=== PATIENT | male | born 2000 | race Caucasian/White ===

== ENCOUNTER → 2018-09-25 | Outpatient (CLI) | payer OTHER ==
[~2018-09-25] MED LIST: CONRAY-43 43% 50ML VIAL (Q9960) As Ordered ONE; PROHANCE 279.3MG/ML 5ML VIAL (A9576) As Ordered ONE
--- NOTE | 2018-09-25 08:57 | REP ---
MR arthrogram right hip: History: Right hip pain . Technique: Precontrast imaging includes coronal T1 and T2-weighted scans of both hips. Postcontrast small field of view high resolution axial, coronal and sagittal images are acquired in T1 and T2-weighted scans with fat saturation. MR arthrographic findings: Comparison studies: No comparison imaging. Pre injection imaging shows that cortical and medullary bone signal intensity is normal in the proximal femurs bilaterally. There is no evidence to suggest avascular necrosis. The visualized bony pelvic ring shows intact bone signal intensity as well. No pelvic mass, adenopathy or abdominal wall defect is seen. Urinary bladder, prostate and seminal vesicles are unremarkable. There is no evidence of significant hip joint effusion on preinjection imaging. T2-weighted scans do show mild edema pattern just lateral to the greater trochanters on both sides which may reflect mild tendonitis or bursitis. Post injection imaging shows good filling and enhancement of the right hip articulation. No loose body is seen. Ligamentum teres is intact. No articular cartilage abnormality is seen. No labral cartilage tear is appreciated. Impression: Mild edema on T2-weighted scans adjacent to the greater trochanters bilaterally. Question tendonitis or bursitis change. Otherwise normal MR arthrography right hip. Electronically Signed by Maik Ramirez MD 09/25/2018 10:16 A
--- NOTE | 2018-09-25 19:03 | REP ---
RIGHT HIP ARTHROGRAM The procedure was performed under the direction supervision of Dr. Ramirez. The benefits and risks including but not limited to pain, infection, bleeding and anaphylaxis were explained to the patient and informed consent was obtained. The right femoral neck was localized using fluoroscopic guidance. Skin was prepped and draped in a sterile fashion. 1% lidocaine was used as a local anesthetic. Using fluoroscopic guidance a 22 gauge spinal needle was inserted and advanced to the femoral neck. 0.5 ml of Conray 43 was injected to verify placement. 11 ml of a solution containing 20 ml of sterile saline and 0.15 ml of ProHance was injected into the joint. The needle was removed and the patient was taken to MRI for postprocedural imaging. The patient tolerated the procedure well and there were no immediate complications. Less than 6 seconds of fluoro time was utilized for this procedure. Reviewed by VALERIE Sifuentes 09/25/2018 12:31 P Electronically Signed by Maik Ramirez MD 09/25/2018 06:55 P
== END ==
LOC: M RADPRO 06:19
PROVIDERS: ATTEND Orthopaedic Surgery
DX: R60.0 Localized edema (principal)
CPT/HCPCS: 27093; 73723; 77002; A9576; Q9960

== ENCOUNTER → 2018-09-29 | Outpatient (CLI) | payer OTHER ==
[~2018-09-29] MED LIST changes: +LIDOCAINE 1% MDV 20ML VIAL As Ordered ONE; -PROHANCE 279.3MG/ML 5ML VIAL (A9576) As Ordered ONE; +TRIAMCINOLONE ACETONIDE SUSP 40 MG/ML VIAL (J3301) As Ordered ONE
--- NOTE | 2018-09-29 18:07 | REP ---
Right hip injection The procedure was performed under the direct supervision of Dr. Ramirez. The benefits and risks including but not limited to pain infection and bleeding and anaphylaxis were explained to the patient and informed consent was obtained. The right femoral neck was localized using fluoroscopic guidance. The skin was prepped and draped in a sterile fashion. 1% lidocaine was used as a local anesthetic. Using fluoroscopic guidance a 22-gauge spinal needle was inserted and advanced to the femoral neck. 0.5 ml of Conray 43 was injected to verify placement. 10 ml of a solution containing 9 ml of 1% Xylocaine and 1 ml of Kenalog 40 mg was injected. The needle was then removed. The patient tolerated the procedure well and there were no immediate complications. Less than six seconds of fluoro time was utilized for this procedure. Reviewed by VALERIE Sifuentes 09/29/2018 05:16 P Electronically Signed by Maik Ramirez MD 09/29/2018 05:58 P
== END ==
LOC: M RADPRO 08:39 → EDUNIT# 09:00
PROVIDERS: ATTEND Orthopaedic Surgery
DX: M25.551 Pain in right hip (principal)
CPT/HCPCS: 20611; 77002; J3301; Q9960

== ENCOUNTER 2021-06-28 17:06 | Emergency (ER) | payer OTHER ==
[~2021-06-28] VITALS: Ht 172.7 cm; Wt 88.8 kg
[2021-06-28] MEDS ORDERED: ZOFR4TAB16 PO (17:51)
[2021-06-28 18:47] LABS: BASO % 0.3 % (0.0-1.0); EOS % 0.2 % (0.0-3.0); HEMATOCRIT 45.9 % (42.0-52.0); HEMOGLOBIN 15.7 g/dl (13.5-17.5); LYMPH # 1.8 10^3/uL (1.5-5.0); LYMPH % 28.2 % (24.0-44.0); MEAN CORPUSCULAR HEMOGLOBIN 30.5 pg (27.0-33.0); MEAN CORPUSCULAR HGB CONC 34.2 g/dl (32.0-36.5); MEAN CORPUSCULAR VOLUME 89.3 fl (80.0-96.0); MONO # 0.5 10^3/uL (0.0-0.8); NEUTROPHILS # 4.1 10^3/uL (1.5-8.5); PLATELET COUNT, AUTOMATED 198 10^3/uL (150-450); RED BLOOD COUNT 5.14 10^6/uL (4.30-6.10); WHITE BLOOD COUNT 6.4 10^3/uL (4.0-10.0)
[2021-06-28 19:09] LABS: ALBUMIN 4.3 GM/DL (3.2-5.2); ALT/SGPT 23 U/L (12-78); BILIRUBIN,DIRECT 0.3 MG/DL (0.0-0.2); BILIRUBIN,TOTAL 1.2 MG/DL (0.2-1.0); BLOOD UREA NITROGEN 12 MG/DL (7-18); CALCIUM LEVEL 9.5 MG/DL (8.5-10.1); CARBON DIOXIDE LEVEL 30 MEQ/L (21-32); CHLORIDE LEVEL 108 MEQ/L (98-107); CREATININE FOR GFR 1.18 MG/DL (0.70-1.30); GLOMERULAR FILTRATION RATE > 60.0 (>60); GLUCOSE, FASTING 86 MG/DL (70-100); LIPASE 82 U/L (73-393); POTASSIUM SERUM 4.3 MEQ/L (3.5-5.1); SODIUM LEVEL 142 MEQ/L (136-145); TOTAL PROTEIN 7.6 GM/DL (6.4-8.2)
[2021-06-28 19:30] VITALS: BP 129/67
[2021-06-28] MEDS ORDERED: ISOVUE-370 76% 100ML VIAL As Ordered ONE (21:39)
--- NOTE | 2021-06-28 21:51 | REPVR ---
PROCEDURE INFORMATION: Exam: US Abdomen, Limited; Right Upper Quadrant Exam date and time: 06/28/2021 9:10 PM Age: 20 years old Clinical indication: Abdominal pain; Acute; Additional info: Ruq pain TECHNIQUE: Imaging protocol: US abdomen. Real time ultrasound with image documentation. Limited exam focused on the right upper quadrant. COMPARISON: XA HIP ARTHROGRAM WITH MR-CT 09/25/2018 7:02 AM FINDINGS: Liver: Unremarkable. Gallbladder: No gallstones. No gallbladder wall thickening or pericholecystic fluid. Negative sonographic Gifford's sign, as per the performing flight line mechanic. Common bile duct: No stones. No ductal dilatation. Pancreas: Unremarkable as visualized. Right kidney: No mass. No definite stones. No hydronephrosis. IMPRESSION: No acute sonographic findings. Electronically signed by: Devin Sierra On 06/28/2021 21:50:49 PM
--- NOTE | 2021-06-28 22:08 | REPVR ---
PROCEDURE INFORMATION: Exam: CT Abdomen And Pelvis With Contrast Exam date and time: 06/28/2021 9:54 PM Age: 20 years old Clinical indication: Abdominal pain; Generalized TECHNIQUE: Imaging protocol: Computed tomography of the abdomen and pelvis with contrast. Axial, coronal and sagittal reformatted images were created and reviewed. Radiation optimization: All CT scans at this facility use at least one of these dose optimization techniques: automated exposure control; mA and/or kV adjustment per patient size (includes targeted exams where dose is matched to clinical indication); or iterative reconstruction. Contrast material: ISOVUE 370; Contrast volume: 100 ml; Contrast route: INTRAVENOUS (IV); COMPARISON: GALLBLADDER US 06/28/2021 8:59 PM FINDINGS: Liver: Unremarkable. Gallbladder and bile ducts: No radiodense gallstones. No biliary ductal dilatation. Pancreas: Unremarkable. Spleen: Unremarkable. Adrenal glands: Normal. No mass. Kidneys and ureters: No mass. No radiodense calculi. No hydronephrosis. Stomach and bowel: No bowel wall thickening. No obstruction. No pneumatosis. Appendix: Normal. Intraperitoneal space: No free fluid. No organized fluid collection. No free air. Vasculature: Unremarkable. No aneurysm. Lymph nodes: Small enteric lymph nodes, nonspecific in appearance. No pathologically enlarged lymph nodes. Urinary bladder: Unremarkable as visualized. Reproductive: Unremarkable. Bones/joints: No acute osseous abnormality. Soft tissues: Unremarkable. Other findings: Coarse calcified splenic granulomata. IMPRESSION: 1. No CT evidence of acute intra-abdominal or pelvic pathology. 2. Additional findings, as above. Electronically signed by: Devin Sierra On 06/28/2021 22:08:19 PM
== END 2021-06-28 22:33 | disposition home or self-care (01) ==
LOC: M ED 17:06
DX: R10.11 Right upper quadrant pain (principal); R11.2 Nausea with vomiting, unspecified
CPT/HCPCS: 36415; 74177; 76705; 80048; 80076; 81001; 83690; 85025; 99283; Q9967